=== PATIENT | female | born 1970 | race Caucasian/White ===

== ENCOUNTER 2017-06-11 09:31 | Emergency (ER) | payer OTHER ==
[~2017-06-11] VITALS: Ht 167.6 cm; Wt 58.0 kg
[~2017-06-11 09:31] MED LIST: BCPILLS PO; CALC1CHW2 PO
[2017-06-11 09:33] VITALS: TEMP 36.4; Ht 167.6 cm; Wt 58.0 kg
[2017-06-11] MEDS ORDERED: SODIUM CHLORIDE 0.9% 1000ML 1,000 ML IV STA (10:18)
[2017-06-11] MEDS ORDERED: MoRPHine SULFATE 4 MG/ML 1 ML CARP\\VIAL IV STA (10:18)
[2017-06-11] MEDS ORDERED: ONDANSETRON INJ 2 MG/ML 2 ML VIAL IV STA ×2 (10:18→11:39)
[2017-06-11 10:40] LABS: BASO % 0.2 %; BASO ABS # 0.02 K/uL (0-0.2); EOS % 1.7 %; EOS ABS # 0.17 K/uL (0-0.5); HEMATOCRIT 37.7 % (37-47); HEMOGLOBIN 13.4 g/dL (12.0-16.0); IG# 0.04 K/uL (0.00-0.02); LYMPH % 14.5 %; LYMPH ABS # 1.45 K/uL (1.2-3.4); MEAN CELL VOLUME 88.1 fL (80-100); MEAN CORPUSCULAR HEMOGLOBIN 31.3 pg (25-34); MEAN CORPUSCULAR HGB CONC 35.5 g/dl (32-36); MEAN PLATELET VOLUME 9.7 fL (7.4-10.4); MONO % 9.1 %; MONO ABS # 0.91 K/uL (0.11-0.59); NEUT % 74.1 %; NEUT ABS # 7.39 K/uL (1.4-6.5); PLATELET COUNT 298 K/uL (130-400); RED CELL DISTRIBUTION WIDTH CV 12.7 % (11.5-14.5); RED CELL DISTRIBUTION WIDTH SD 40.4 fL (36.4-46.3); WHITE BLOOD COUNT 9.98 K/uL (4.8-10.8)
[2017-06-11 10:47] LABS: ALBUMIN 2.9 gm/dl (3.4-5.0); CALCIUM 8.7 mg/dl (8.5-10.1); CREATININE 1.03 mg/dl (0.60-1.20); POTASSIUM 2.6 mmol/L (3.5-5.1)
[2017-06-11 10:50] LABS: TOTAL PROTEIN 7.2 gm/dl (6.4-8.2)
--- NOTE | 2017-06-11 11:12 | DIAGNOSTIC IMAGING REPORT ---
ABDOMEN 2VIEW W/PA CHEST RTN HISTORY: 47 years-old Female ABDOMINAL PAIN/GI acute generalized abdominal pain COMPARISON: Chest radiograph 06/05/2005 TECHNIQUE: PA view of the chest with erect and supine views of the abdomen FINDINGS: Cardiomediastinal and hilar silhouettes are within normal limits. No pneumothorax, pleural effusion, focal airspace consolidation or overt pulmonary edema. Nodular opacity of the left lung base suggests nipple shadow. Bones of the chest appear grossly intact. No pneumatosis or pneumoperitoneum identified. No urolith or fracture. Multiple calcifications of the pelvis suggest phleboliths. IMPRESSION: 1. No acute processes of the chest. 2. Nonobstructive bowel gas pattern without pneumoperitoneum. The above report was generated using voice recognition software. It may contain grammatical, syntax or spelling errors. Electronically signed by: Richard Phillip M.D. 06/11/2017 11:11 AM Dictated Date/Time: 06/11/2017 11:09 AM
[2017-06-11] MEDS ORDERED: POTASSIUM CHLR 10 MEQ / WTR 10 MEQ in PREMIXED WATER 100 ML IV STA (11:28)
[2017-06-11] MEDS ORDERED: POTASSIUM CHLORIDE 20 MEQ TABCR PO STA (11:28)
[2017-06-11] MEDS ORDERED: POTASSIUM CHLORIDE 10 MEQ / 100ML WTR IV ONE (11:35)
[2017-06-11] MEDS ORDERED: POTASSIUM CHLORIDE 10 MEQ TABCR ONE (11:35)
[2017-06-11] MEDS ORDERED: OPTIRAY 320 IV PRN (12:15)
--- NOTE | 2017-06-11 13:29 | DIAGNOSTIC IMAGING REPORT ---
ABDOMEN AND PELVIS CT WITH IV AND ORAL CONTRAST CT DOSE: 299.48 mGy.cm HISTORY: Acute generalized abdominal pain ABDOMINAL PAIN/GI TECHNIQUE: Multiaxial CT images of the abdomen and pelvis were performed following the use of intravenous and oral contrast. A dose lowering technique was utilized adhering to the principles of ALARA. COMPARISON STUDY: Acute abdominal series radiographs 06/11/2017. FINDINGS: Minimal subsegmental dependent atelectasis of the right lung base. No pneumatosis or pneumoperitoneum identified. Imaged inferior cardiac chambers are unremarkable. Mild periportal edema, likely related to hydration status. Liver is otherwise unremarkable. Spleen, pancreas, gallbladder and adrenal glands are within normal limits. Kidneys, ureters and urinary bladder are within normal limits. Uterus and adnexa are also unremarkable. Aorta is normal in both course and caliber. No bulky adenopathy identified. No bowel obstruction. There is moderate wall thickening of the large bowel with mild pericolic inflammatory stranding which extends from the cecum to the rectum. Mild pericolic and dependent pelvic ascites. No evidence of acute appendicitis. Soft tissues are unremarkable. The bones appear intact. Moderate size Schmorl's node involves superior endplate L2. IMPRESSION: 1. Moderate wall thickening with mild adjacent inflammatory stranding involves the large bowel extending from the cecum to the rectum compatible with a pancolitis, likely from infectious or inflammatory etiology. 2. No bowel obstruction. 3. Mild free pelvic fluid is likely reactive. Electronically signed by: Richard Phillip M.D. 06/11/2017 1:27 PM Dictated Date/Time: 06/11/2017 1:20 PM
[2017-06-11] MEDS ORDERED: VANC5CAP PO (14:21)
[2017-06-11] MEDS ORDERED: POTA20TA13 PO (14:21)
[2017-06-11 14:22] VITALS: BP 128/76; PULSE 88; O2SAT 100
--- NOTE | 2017-06-11 17:47 | EMERGENCY ROOM VISIT NOTE ---
ED Visit Note First contact with patient: 09:43 Chief Complaint: Abdominal pain and diarrhea. History of Present Illness: Ms. Sethi is a 47 year-old white female who ambulates into the ED accompanied by her complaining of diffuse lower quadrant abdominal pain, fever, diarrhea, nausea and a productive cough of greenish sputum. Historically patient reports history of endometriosis and explored laparoscopy for her endometriosis. Should be noted that patient is a poor historian on the timing of her symptoms. Patient reports towards the end of May patient was placed on a unknown antibiotic for a possible bacterial vaginal infection. She completed the course without difficulty. Patient reports a acute onset of diarrhea that started 7 days ago. She reports initially her diarrhea was watery and green in color with a foul smell. At the onset of her symptoms she reports she had 3 days of 5 episodes of diarrhea and over the last couple of days it has decreased to 3 episodes of diarrhea per day. She has not identified any aggravating or alleviating factors related to her diarrhea. She has not taken any medication for her diarrhea prior to arrival at the hospital. 2 days ago she noted a gradual onset of severe abdominal pain in the bilateral lower abdomen with prominence on the left. She describes this as a crescendo, decrescendo of crampy pain that becomes starving at its most severe. When the pain becomes her most severe once again she has an additional episode of vomiting. After the episode of diarrhea her pain decreases. At its worst she rates her discomfort 10/10 and currently she rates her discomfort 5/10. She has attempted to use ibuprofen without relief of her discomfort. Her pain worsens when she is ambulating and lying supine improves her discomfort. Associated with her pain she reports she has been having a decreased appetite, intermittent fevers, chills without vomiting, abdominal bloating. Additionally over the last 2 days she reports she is developed some sinus congestion, a productive cough of greenish sputum and a sore throat. Patient denies chills, sweats, skin eruptions, skin color changes, sinus pain/ pressure, voice changes, difficulty swallowing, drooling, painful talking, shortness of breath, wheezing, chest pain/discomfort, palpitations, previous clots, claudication, cramping, constipation, rectal bleeding, black/tarry stools , urinary symptoms, hematuria, vaginal bleeding, vaginal discharge, back/flank pain. Review of Systems: As noted above in history of present illness. All body systems were reviewed and found to be negative as noted above. Past Medical History: As previously noted. Current Medications: control. Allergies to Medications: Clarithromycin, sulfa. Social History: Patient is currently employed; she feels safe in her home environment; she denies tobacco and alcohol use. Physical Examination: Vital Signs: Date Time Temp Pulse Resp B/P (MAP) Pulse Ox O2 Delivery O2 Flow Rate FiO2 06/11/17 14:22 88 20 128/76 100 Room Air 06/11/17 12:47 91 20 108/89 100 Room Air 06/11/17 11:46 88 20 117/77 99 Room Air 06/11/17 09:33 36.4 118 20 141/77 98 Room Air GENERAL: 47-year-old female in mild to moderate distress due to symptoms, nontoxic-appearing, afebrile and hemodynamically stable. NEUROLOGICAL: Awake, alert and oriented to person, place and time. Answering questions appropriately and following commands. Normal gait. Good hand eye coordination. SKIN: Warm, dry and pink. No soft tissue eruptions or trauma noted. HEENT: Atraumatic and normocephalic. No tenderness or erythema over the frontal or maxillary sinuses. PERRLA. Sclera white and conjunctiva pink. Oral cavity moist and pink. Airway patent. Uvula is midline and no abscesses are seen. Pharynx is mildly erythematous and mildly edematous. No tonsillar hypertrophy or exudative material. Speech normal. No lymphadenopathy. Trachea midline. No jugular venous distention. BACK: No tenderness over the bony spine. No CVA tenderness. THORAX: Lungs sounds are clear to auscultation and equal bilaterally with symmetrical chest wall. No wheezing, rales or rhonchi. No crepitus, tenderness , subcutaneous air or deformities noted. HEART: Regular rate and rhythm. No gallops, rubs or murmurs are appreciated. ABDOMEN: Flat and soft with diffuse tenderness throughout the lower quadrants without side prominence. Decreased bowel sounds in all quadrants. No guarding , rigidity or organomegaly. EXTREMITIES: Moves all extremities well on command and with purpose. All distal neurovascular statuses are intact and equal bilaterally. ED Course: Patient is assessed as noted above. Laboratory Testing: Test 06/11/17 10:00 06/11/17 11:30 Range/Units White Blood Count 9.98 4.8-10.8 K/uL Red Blood Count 4.28 4.2-5.4 M/uL Hemoglobin 13.4 12.0-16.0 g/dL Hematocrit 37.7 37-47 % Mean Corpuscular Volume 88.1 80-100 fL Mean Corpuscular Hemoglobin 31.3 25-34 pg Mean Corpuscular Hemoglobin Concent 35.5 32-36 g/dl Platelet Count 298 130-400 K/uL Mean Platelet Volume 9.7 7.4-10.4 fL Neutrophils (%) (Auto) 74.1 % Lymphocytes (%) (Auto) 14.5 % Monocytes (%) (Auto) 9.1 % Eosinophils (%) (Auto) 1.7 % Basophils (%) (Auto) 0.2 % Neutrophils # (Auto) 7.39 1.4-6.5 K/uL Lymphocytes # (Auto) 1.45 1.2-3.4 K/uL Monocytes # (Auto) 0.91 0.11-0.59 K/uL Eosinophils # (Auto) 0.17 0-0.5 K/uL Basophils # (Auto) 0.02 0-0.2 K/uL RDW Standard Deviation 40.4 36.4-46.3 fL RDW Coefficient of Variation 12.7 11.5-14.5 % Immature Granulocyte % (Auto) 0.4 % Immature Granulocyte # (Auto) 0.04 0.00-0.02 K/uL Sodium Level 134 136-145 mmol/L Potassium Level 2.6 3.5-5.1 mmol/L Chloride Level 103 98-107 mmol/L Carbon Dioxide Level 21 21-32 mmol/L Anion Gap 10.0 3-11 mmol/L Blood Urea Nitrogen 8 7-18 mg/dl Creatinine 1.03 0.60-1.20 mg/dl Est Creatinine Clear Calc Drug Dose 61.2 ml/min Estimated GFR () 74.4 Estimated GFR (Non- 64.2 BUN/Creatinine Ratio 8.1 10-20 Random Glucose 82 70-99 mg/dl Calcium Level 8.7 8.5-10.1 mg/dl Total Bilirubin 0.5 0.2-1 mg/dl Direct Bilirubin 0.1 0-0.2 mg/dl Aspartate Amino Transf (AST/SGOT) 22 15-37 U/L Alanine Aminotransferase (ALT/SGPT) 30 12-78 U/L Alkaline Phosphatase 85 45-117 U/L Total Protein 7.2 6.4-8.2 gm/dl Albumin 2.9 3.4-5.0 gm/dl Lipase 246 73-393 U/L Urine Color YELLOW Urine Appearance CLEAR CLEAR Urine pH 6.5 4.5-7.5 Urine Specific [place] 1.009 1.000-1.030 Urine Protein 1+ NEG Urine Glucose (UA) NEG NEG Urine Ketones 1+ NEG Urine Occult Blood 2+ NEG Urine Nitrite NEG NEG Urine Bilirubin NEG NEG Urine Urobilinogen NEG NEG Urine Leukocyte Esterase NEG NEG Urine WBC (Auto) 5-10 0-5 /hpf Urine RBC (Auto) 0-4 0-4 /hpf Urine Hyaline Casts (Auto) 1-5 0-5 /lpf Urine Epithelial Cells (Auto) >30 0-5 /lpf Urine Bacteria (Auto) NEG NEG Microbiology Results C.difficile Toxin B Gene (PCR): Positive for C. difficile toxin B gene Rotavirus Antigen: Negative for Rotavirus Antigen WBC Smear: Pending Shiga Toxin Test: Pending Stool Culture: Pending Acute Abdominal Series: Was read by myself and the radiologist showing no acute infiltrates, effusions or pneumothorax. Normal heart silhouette and bony anatomy. Abdominal component shows a nonobstructive bowel gas pattern without free air. Contrast Abdominal/Pelvic CT: Was reviewed by myself and read by the radiologist showing moderate wall thickening with mild adjacent inflammatory stranding involving the large bowels extending from the cecum to the rectum compatible with pancolitis, no bowel obstructions, mild free fluid in the pelvis. Patient was hydrated with normal saline and patient received 4 mg of morphine IV and 4 mg of Zofran IV. On reassessment patient was found to be hypokalemic and was given 10 mEq of potassium chloride IV and 20 mg of potassium chloride p.o. Patient was reassessed multiple times during her stay in the emergency department. Patient's case was reviewed with Dr. Robledo; we agreed on diagnostic approach, treatment, disposition and plan. Patient was educated about today's findings and instructed on her treatment plan ; she verbalized understanding and agreement with this plan. Clinical Impression: C. difficile colitis. Pancolitis. Hypokalemia. Decision-Making: Initially my differential diagnosis I considered C. difficile, colitis, enteritis, electrolyte abnormality, bowel obstruction, diverticulitis and other causes. Disposition: Patient discharged home in stable condition accompanied by her ; prior to departure she was reassessed and subjectively reported she was feeling better and rated her discomfort 05/12 Plan: Patient was encouraged alternate ibuprofen and acetaminophen every 3 hours as needed for persistent pain and/or fevers. Patient was prescribed 125 mg of vancomycin 4 times a day for 10 days. Patient was prescribed potassium 20 mEq every day for the next 4 days and was also encouraged to eat one banana and one arms daily. Patient was encouraged to increase clear fluids. Patient was encouraged to contact her PCP for follow-up care and treatment. Patient was encouraged return the ED for worsening pain, worsening fevers, worsening diarrhea, bloody diarrhea or any new/concerning symptoms.
== END 2017-06-11 14:36 | disposition home or self-care (01) ==
LOC: C.EDB 09:33
DX: A04.72 Enterocolitis due to Clostridium difficile, not specified as recurrent (principal); R10.30 Lower abdominal pain, unspecified; K51.00 Ulcerative (chronic) pancolitis without complications; E87.6 Hypokalemia